=== PATIENT | male | born 1960 | race Caucasian/White ===

== ENCOUNTER 2024-02-14 13:26 | Emergency (ER) | payer MEDICAID, OTHER ==
[~2024-02-14] VITALS: Ht 167.6 cm; Wt 89.0 kg
[2024-02-14 13:32] VITALS: TEMP 98.5; O2SAT 95
[2024-02-14] MEDS ORDERED: LIDOCAINE HCL/EPINEPHRINE 1%-EPI 1:100,000 20 ML VIAL INFIL ONE (14:00)
[2024-02-14] MEDS ORDERED: TETANUS, DIPHTHERIA, PERTUSSIS VAC/PF 0.5ML (>10YR OLD) IM ONE (14:00)
[2024-02-14 14:36] LABS: BASOPHILS % 0.4 % (0.0-2.0); EOSINOPHILS % 2.4 % (0.0-5.0); HEMOGLOBIN. 12.8 g/dL (14.0-18.0); LYMPHOCYTES % 20.4 % (20.0-50.0); MEAN CORPUSCULAR HGB CONC 32.8 g/dL (31.0-37.0); MEAN CORPUSCULAR VOLUME 94.4 fL (80.0-94.0); MEAN PLATELET VOLUME 9.3 fl (7.4-10.4); MONOCYTES % 8.5 % (2.0-8.0); NEUTROPHILS % 68.3 % (40.0-76.0); PLATELET 166 x1000/uL (130-400); RED BLOOD CELL COUNT 4.13 mill/uL (4.7-6.1); WHITE BLOOD COUNT 6.4 x1000/uL (4.5-11.0)
[2024-02-14 14:42] LABS: CHLORIDE 104 mEq/L (98-107); POTASSIUM 4.4 mEq/L (3.5-5.1); SODIUM 138 mEq/L (136-145)
[2024-02-14 14:43] LABS: CALCIUM 9.4 mg/dL (8.7-10.4); CARBON DIOXIDE 28 mEq/L (21-32)
[2024-02-14 14:48] LABS: CREATININE 0.8 mg/dL (0.6-1.3); GLUCOSE 253 mg/dL (70-105); UREA NITROGEN BLOOD 12 mg/dL (9-23)
[2024-02-14 15:00] LABS: TROPONIN I HIGH SENSITIVITY < 4 ng/L (3.0-53)
[2024-02-14 15:04] LABS: PARTIAL THROMBOPLASTIN TIME 24.2 sec (23.4-31.0); PROTHROMBIN TIME 11.2 sec (9.6-11.0)
[2024-02-14] MEDS: LIDOCAINE HCL/EPINEPHRINE 1%-EPI 1:100,000 20 ML VIAL INFIL NR (16:35)
[2024-02-14] MEDS: IBUPROFEN 400MG TABLET PO ONE (16:35)
[2024-02-14] MEDS: HYDROCODONE/ACETAMINOPHEN 5/325MG TABLET PO ONE (16:35)
[2024-02-14] MEDS ORDERED: METH-653 MT (16:52)
[2024-02-14] MEDS ORDERED: HYDR-4001 MT (16:52)
[2024-02-14] MEDS ORDERED: LIDO1ADH23 TP (16:52)
[2024-02-14] MEDS ORDERED: CEPH500T MT (16:53)
[2024-02-14] MEDS: TETANUS, DIPHTHERIA, PERTUSSIS VAC/PF 0.5ML (>10YR OLD) IM ONE (16:58)
[2024-02-14 17:04] LABS: TROPONIN I HIGH SENSITIVITY < 4 ng/L (3.0-53)
[2024-02-14 17:29] VITALS: BP 136/72; PULSE 70; RESP 20
== END 2024-02-14 17:53 | disposition home or self-care (01) ==
LOC: ER 13:26
DX: S81.012A Laceration without foreign body, left knee, initial encounter (principal); E11.9 Type 2 diabetes mellitus without complications; E78.00 Pure hypercholesterolemia, unspecified; I10 Essential (primary) hypertension; Z79.899 Other long term (current) drug therapy; V49.49XA Driver injured in collision with other motor vehicles in traffic accident, initial encounter; Y93.89 Activity, other specified; Y92.89 Other specified places as the place of occurrence of the external cause; Y99.8 Other external cause status
CPT/HCPCS: 80048; 83880; 85025; 85610; 85730; 84484; 36415; 71045; 71120; 73562; 70450; 72125; 90715; 93005; 12001; 90471; 99285; J3490; Z7610 ×4